=== PATIENT | male | born 1985 | race Caucasian/White ===

== ENCOUNTER 2020-01-29 07:53 | Outpatient (REF) | payer OTHER, SELFPAY ==
[2020-01-29 08:18] LABS: COVID-19 Test Negative (Negative)
== END 2020-01-29 07:54 | disposition home or self-care (01) ==
LOC: HO.LAB 07:53
PROVIDERS: Visit Provider Internal Medicine
DX: Z20.828 Contact with and (suspected) exposure to other viral communicable diseases (principal)
CPT/HCPCS: 87635

== ENCOUNTER 2025-02-08 15:01 | Outpatient (AMB) | payer BC, SELFPAY ==
--- NOTE | 2025-02-08 15:01 | MHC.PC.OV ---
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: No Accompanied by: Self / Same As Patient Allergies No Known Allergies (No Known Allergies*) Allergy (Verified 02/08/25 15:02) Shell fish Allergy (Unknown, Uncoded 06/24/19 00:00) Itchy lips shell fish Allergy (Unknown, Uncoded 04/10/19 00:00) itchy lips Medication List - Last Reconciled 02/08/25 by Anil Landin MD ibuprofen 800 mg PO Q8H Tobacco use date assessed: 02/08/25 Dental Screening Dental Screen Date: 02/08/25 Did you have a dental visit in the last 12 months?: No Did you have a dental problem in the last 6 months where you did not have access to dental care?: No Was dental information given to patient?: Patient has dentist HPI HPI Comments History of Present Illness Details History of Present Illness The patient is a 39 year old male presenting for a physical examination and to establish care with a new primary care provider. Left arm injury: The patient sustained a fall from a ladder in September, causing an injury to his left arm for which he did not seek emergency care. He continues to experience pain and popping, with an inability to fully extend the arm, although he notes the symptoms feel like they are improving. He has worn a brace intermittently and has not taken pain medication for the injury. Overweight: The patient struggles with his weight, which is a significant concern for him as he nears the age of 40. His BMI is 29.3, placing him in the overweight category. Suspected sleep apnea: The patient reports feeling tired a lot lately, which he attributes to diet and stress. He also reports a couple of episodes where he has woken up from sleep feeling as if he were choking or had stopped breathing. Allergy to shellfish: The patient has a known history of an allergy to shellfish, which is noted in his medical records. Surgical History: - No prior surgical history reported. Medications: - Denies taking any regular medications or supplements. - Has used scopolamine patches as needed for motion sickness on trips. - Uses dzet-ntr-tcbawbr ibuprofen as needed for pain. 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 - Substance Use: Denies smoking. - Substance Use: Reports social alcohol consumption. - Sexual Health: Declined screening for chlamydia, syphilis, and gonorrhea. - Weight Management: Patient struggles with his weight and considers it a primary concern. Family History: - Reports a family history of cancer. - Reports a family history of high blood pressure. Diagnostic Results: - Body Mass Index (BMI): 29.3 Past Medical History - Allergy to shellfish. - Intolerance to opioid pain medications including oxycodone, Percocet, and Vicodin, causing vomiting. - Left arm injury secondary to a fall from a ladder in September. - History of motion sickness managed with as-needed scopolamine patches. Health Maintenance - Patient is a 39-year-old male establishing primary care. - Colon cancer screening is not yet indicated. - Patient's BMI is 29.3, classifying him as overweight. - A referral was placed for a registered dietitian to discuss nutrition and weight management. - Comprehensive baseline labs were ordered. [facility] Medical History (Updated 02/08/25 @ 15:19 by Anil Landin MD) Overweight (BMI 25.0-29.9) Fatigue Snoring Family History (Updated 02/08/25 @ 15:09 by Kenneth Painting MA) Father Leukemia Mother Breast cancer Social History Housing: House Patient Tobacco Use Status: Never used Tobacco service: No Current occupational status: employed Cognitive needs: No Hearing needs: No Vision needs: No Questionnaire Thrive Questionnaire Date Thrive assessed: 02/05/25 I am a: Patient What is your living situation today?: I have a steady place to live Within the past 12 months, did the food you bought not last and you didn't have the money to get more?: Never true Within the past 12 months, did you worry whether your food would run out before you got money to buy more?: Never true Do you have trouble paying for medicines?: No Do you have trouble getting transportation to medical appointments?: No Do you have trouble paying your heating and electricity bill?: No Do you have trouble taking care of your child, family member or friend?: No Do you have trouble with day-to-day activities such as bathing, preparing meals, shopping, managing finances, etc.?: No Are you currently unemployed and looking for a job?: No Are you interested in more education?: No Please select the resources that you would like help with: None Currently or been in a relationship where the following occur: No concerns reported THRIVE Score: 0 AUDIT C Alcohol Use Questionnaire (AUDIT-C) 1. How often do you have a drink containing alcohol?: 2-3 times a week 2. How many drinks containing alcohol do you have on a typical day when you are drinking?: 3 or 4 3. How often do you have six or more drinks on one occasion?: Monthly Total Score: 6 MINGO-7 AMB Questionnaire MINGO-7 Feeling nervous, anxious, or on edge: 0 = Not at all Not being able to stop or control worryin = Not at all Worrying too much about different things: 0 = Not at all Trouble relaxin = Not at all Being so restless that it is hard to sit still: 0 = Not at all Becoming easily annoyed or irritable: 0 = Not at all Feeling afraid as if something awful might happen: 0 = Not at all Total MINGO-7 score (0-4 normal; 5-9 mild; 10-14 moderate; 15-21 severe): 0 Source: Developed by Drs. Prashant Alford, Janeen Cruz, Aries Tierney and colleagues, with an educational tatyana from [facility]. Review of Systems Narrative Review of Systems - Constitutional: Reports fatigue and struggles with weight. - Respiratory: Reports occasional episodes of waking up choking or gasping for air. - Musculoskeletal: Reports persistent pain, popping, and limited extension in the left arm since a fall in September. - Extremities: Denies swelling in the lower extremities. - Allergic/Immunologic: Reports an allergy to shellfish. 10-point ROS reviewed and negative except as noted in HPI Physical exam (Primary Care) Vital Signs: Last Vital Signs Temp 98 F 02/08/25 15:06 Pulse 79 02/08/25 15:06 Resp 16 02/08/25 15:06 BP 133/88 02/08/25 15:06 Pulse Ox 98 02/08/25 15:06 Oxygen Delivery Method Room Air 02/08/25 15:06 BMI result Body Mass Index 29.3 Tobacco/Smoking Status: Tobacco use Status Tobacco use date assessed 02/08/25 02/08/25 15:03 Patient Tobacco Use Status Never used Tobacco 02/08/25 15:03 Thrive Assessment: Date of Thrive Assessment Date Thrive assessed 02/05/25 02/08/25 15:03 Currently or been in a relationship where the following occur: No concerns reported Narrative Physical Exam General: Well-appearing, in no acute distress. Vital signs: Within normal limits. HEENT: Normocephalic, atraumatic. PERRLA, EOMI. Conjunctiva clear, sclera anicteric. Oropharynx clear, mucous membranes moist. TMs intact bilaterally. Neck: Supple, no lymphadenopathy, no thyromegaly, no JVD or carotid bruits. Cardiovascular: RRR, normal S1/S2, no murmurs, rubs, or gallops. Peripheral pulses 2+ and symmetric. No edema. Respiratory: Lungs clear to auscultation bilaterally, no wheezes, rales, or rhonchi. Normal effort. Abdomen: Soft, non-tender, non-distended. Normoactive bowel sounds. No hepatosplenomegaly, no masses. MSK: Limited range of motion in the left arm due to pain from a fall in September. No joint swelling or deformity noted. Normal gait. Skin: Warm, dry, intact. No rashes, lesions, or pallor. Neuro: Alert and oriented x3. Cranial nerves II-XII intact. Strength 5/5 throughout. Sensation intact. Reflexes 2+ symmetric. Normal coordination and gait. Psych: Appropriate mood and affect. Normal judgment and insight. Coding Level of Care Code New Pt Level 4 (85518) Diagnoses Snoring R06.83 Fatigue R53.83 Overweight (BMI 25.0-29.9) E66.3 Sleep apnea G47.30 Injury of left elbow S59.902A Assessment & Plan Assessment & Plan (1) Snoring: Code(s): R06.83 - Snoring Category: Medical (2) Fatigue: Code(s): R53.83 - Other fatigue Category: Medical (3) Overweight (BMI 25.0-29.9): Code(s): E66.3 - Overweight Category: Medical (4) Sleep apnea: Code(s): G47.30 - Sleep apnea, unspecified (5) Injury of left elbow: Code(s): S59.902A - Unspecified injury of left elbow, initial encounter Plan Consent The patient verbally consented to the plan of care, which includes comprehensive lab work, a home sleep study, and a referral to a registered dietitian. He also agreed to a conservative management approach for his arm injury, including ibuprofen and bracing, before proceeding with physical therapy. Patient was informed and verbally consented to the use of an ambient scribe for clinic note documentation during this visit. Plan 1. Encounter For General Adult Medical Examination - Comprehensive lab work ordered, including a complete blood count, comprehensive metabolic panel, lipid panel, hemoglobin A1c, HIV, hepatitis B and C, thyroid panel, urinalysis, vitamin B12, folate, and vitamin D. - Follow up in two weeks to review lab results. 2. Overweight - A referral has been placed for a registered dietitian to contact the patient to discuss diet and nutrition. 3. Left Arm Injury - A prescription for Ibuprofen 800 mg to be taken every 8 hours as needed for pain has been sent. - The patient will continue using his home brace. - If there is no improvement in 2-4 weeks, the plan is to proceed with physical therapy and imaging. - The patient opted for conservative management first due to concerns about work restrictions. 4. Suspected Sleep Apnea - An order has been placed for a home sleep study to rule out sleep apnea as a cause for his fatigue and to address its potential impact on his weight. Discussion Notes I discussed with the patient that this visit is to establish care and get a baseline of his health. We reviewed his BMI of 29.3, which is in the overweight category and a predictor for future cardiovascular health, and he agreed to a referral to a registered dietitian. Due to his symptoms of fatigue and waking up gasping for air, I explained the rationale for a home sleep study to rule out sleep apnea, which could also be contributing to his weight issues, and he was agreeable. For his chronic left arm injury, I proposed a stepwise approach, starting with conservative measures including Ibuprofen 800 mg and continued bracing. 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 We will follow up in two weeks to review the results of his comprehensive lab work. Patient Instructions - Please go to the lab to have your blood drawn for the tests we ordered. - A company will contact you to arrange a home sleep study. - A registered dietitian will reach out to you to discuss your diet. - For your arm pain, you can take one tablet of Ibuprofen 800 mg every 8 hours as needed. - Continue to use the brace for your arm that you have at home. - If your arm pain does not get better in 2 to 4 weeks, we will need to consider physical therapy and imaging tests. - Please follow up in two weeks to discuss your test results. 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 His primary concerns include his weight, fatigue, and a chronic left arm injury. The patient's BMI of 29.3 places him in the overweight category, approaching class 1 obesity, which is a risk factor for future cardiovascular events. His symptoms of fatigue coupled with reports of waking up choking are highly suggestive of obstructive sleep apnea, which may also contribute to his difficulty with weight management. Therefore, a home sleep study is medically necessary to investigate this possibility, and a referral to a registered dietitian is appropriate to address his weight concerns. His left arm injury, persistent since a fall in September, demonstrates limited range of motion and tenderness on exam. A stepwise approach to management is prudent. 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 Comprehensive baseline laboratory studies have been ordered to get an overall view of his health status. Follow-up in two weeks is planned to review all diagnostic findings and adjust the plan of care accordingly. Total time spent caring for the patient today was 30 minutes. This includes time spent before the visit reviewing the chart, time spent documenting, and time spent reviewing laboratory results, diagnostic imaging, medications, performing a medically necessary evaluation, counseling on diagnoses, care coordination.. Orders: Orders Hepatitis B Surface Antibody Today Z13.9 - Encounter for screening, unspecified Hepatitis C Antibody Today Z13.9 - Encounter for screening, unspecified Magnesium Today Z13.9 - Encounter for screening, unspecified TSH reflex Free T4 Today Z13.9 - Encounter for screening, unspecified UA CC w/rflx Micro + Cult Today Z13.9 - Encounter for screening, unspecified RT home sleep study Today R06.83 - Snoring, R53.83 - Other fatigue, Z13.9 - Encounter for screening, unspecified Comprehensive Met. Panel Today Z13.9 - Encounter for screening, unspecified Complete Blood Count Auto Diff Today Z13.9 - Encounter for screening, unspecified Hemoglobin A1c Today Z13.9 - Encounter for screening, unspecified Hepatitis B Surface Antigen Today Z13.9 - Encounter for screening, unspecified HIV Ab/Ag Today Z13.9 - Encounter for screening, unspecified Lipid Panel Today Z13.9 - Encounter for screening, unspecified Vitamin B12 and Folate Today Z13.9 - Encounter for screening, unspecified Vitamin D 1,25 dihydroxy Today Z13.9 - Encounter for screening, unspecified Referrals Nurse Navigator Referral E66.3 - Overweight, Z13.9 - Encounter for screening, unspecified Medications: New ibuprofen 800 mg PO Q8H 30 tabs 0RF
[2025-02-08 15:06] VITALS: BP 133/88; PULSE 79; RESP 16; TEMP 36.6; O2SAT 98; BMI 29.3
--- OUTSIDE RECORDS SUMMARY | 2025-02-08 18:26 | XMS_ITS | Clinical Summary ---
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 Role Phone Rod Lantigua MD Primary Care Provider Allergies No known active allergies Medications No known medications Active Problems No known active problems Immunizations Immunization Administration Dates Next Due DTP 11/12/1997, 1,02/18/1986,1985,1985 Hepatitis B 03/22/2000,08/16/1997,07/15/1997 Hib,HbOC 11/12/1997 INFLUENZA, SPLIT VIRUS, TRIVALENT PF 04/06/2016, 05/02/2015 INFLUENZA, SPLIT VIRUS, TRIV ALENT W/ PRESERVATIVE IM 02/10/2013 IPV 11/12/1997, 1,1985,1985 Influenza Quadrivalent MDCK Preservative Free IM 01/06/2022 Influenza Quadrivalent w/ Preservative IM 04/02/2019 MMR 07/15/1997,02/12/1997 Td (adult),2 Lf Tetanus Toxo id, PF, Adsorbed 03/22/2000 Tdap 10/15/2022,02/10/2013,10/26/2009 Unknown Vaccine Or Immune Globulin 09/12/1996 Varicella 04/24/2007 Social History Tobacco Use Types Packs/Day Years Used Date Smoking Tobacco: Never Smokeless Tobacco: Never Tobacco Cessation:Counseling Given: Not Answered Alcohol Use Standard Drinks/Week Comments Yes 0 (1 standard drink = 0.6 oz pur e alcohol) Education Answer Date Recorded Are you interested in more education? Not on luis e 10/15/2022 Are you concerned about learning? Not on file 10/15/2022 No 10/15/2022 No 10/15/2022 Digital Access Answer Date Recorded No 10/15/2022 No 10/15/2022 Reliable internet access at home? Not on file 10/15/2022 Device with a working camera? Not on file Sex and Gender Information Value Date Recorded Sex Assigned at Not on file Legal Sex Male 4:58 PM EDT Gender Identity Not on file Sexual Orientation Not on file Last Filed Vital Signs Vital Sign Reading Time Taken Comments Blood Pressure 164/97 09/09/2023 2:23 PM EDT Pulse 69 09/09/2023 2:23 PM EDT Temperature 37.1 C (98.8 F) 09/09/2023 2:23 PM EDT Respiratory Rate 16 09/09/2023 2:23 PM EDT Oxygen Saturation 100% 09/09/2023 2:23 PM EDT Inhaled Oxygen Concentration - - Weight - - Height - - Body Mass Index - - Plan of Treatment Health Maintenance Due Date Last Done Comments LIPID PANEL 1985 DEPRESSION SCREENING 1997 HEPATITIS C SCREENING 08/27/2003 HIV ONE-TIME SCREENING (18-65 YEARS) 08/27/2003 INFLUENZA VACCINE (#1) 2024 , 01/06/2022, 04/02/2019, Additional history exists COVID-19 VACCINE (2024- season) 2024 09/02/2020, 08/10/2020 Adult Td,Tdap Booster 10/15/2032 10/15/2022 , 02/10/2013, 10/26/2009, Additional history exists HIB VACCINES Aged Out 11/12/1997 No longer eligi ble based on patient's age to complete this topic SMOKING STATUS SCREENING (Once After 26 Yrs) Completed 09/09/2023 HEPATITIS A VACCINES Aged Out No long er eligible based on patient's age to complete this topic MENINGOCOCCAL VACCINES (ACWY) Aged Out No longer eligible based on patient's age to complete this topic MENINGOCOCCAL VACCINES (B) Aged Out N o longer eligible based on patient's age to complete this topic PNEUMOCOCCAL VACCINES (0-49 years) Aged Out No longer eligible based on patient's age to complete this topic Medical Devices Not on file Insurance [facility] [place] [id number] FORMERLY [facility] [place] [id number] FOR[facility]LY [facility] Care Teams Drywall Hanger Helper Relationship Specialty Start Date End Date Rod Lantigua MD PCP - General Family Medicine 10/15/22 Additional Source Comments The information contained in this document represents components of the legal health record. It is not the complete legal health record.[facility]
== END 2025-02-08 15:29 | disposition home or self-care (01) ==
LOC: HO.HMCFMS 15:02
PROVIDERS: PCP Student in an Organized Health Care Education/Training Program; Visit Provider Student in an Organized Health Care Education/Training Program
DX: R06.83 Snoring (principal); R53.83 Other fatigue; E66.3 Overweight; G47.30 Sleep apnea, unspecified; S59.902A Unspecified injury of left elbow, initial encounter

== ENCOUNTER 2025-02-08 15:01 | Outpatient (REF) | payer BC, SELFPAY ==
[2025-02-08 18:00] LABS: MANUAL DIFF FLAG NO
[2025-02-08 18:06] LABS: Hematocrit 43.4 % (42.0-52.0); Hemoglobin 14.7 g/dl (14.0-18.0); Imm Gran Abs Auto 0.02 X10*3/uL (0.00-0.03); Imm Gran Pct Auto 0.3 % (0.0-0.4); Lymphocytes Absolute Auto 1.9 X10*3/uL (1.2-4.9); Mean Corpuscular HGB Conc 33.9 g/dl (31.0-36.0); Mean Corpuscular Hemoglobin 29.3 pg (27.0-33.0); Mean Corpuscular Volume 86.5 fL (80.0-98.0); NRBC Abs Auto 0.000 X10*3/uL (0.0-0.012); NRBC Pct Auto 0.0 /100WBC (0.0-0.2); Platelet Count 231 X10*3/uL (160-400); Red Blood Count 5.02 X10*6/uL (4.60-5.80); White Blood Count 7.3 X10*3/uL (4.8-10.8)
[2025-02-08 18:38] LABS: Alanine Aminotransferase 21 U/L (0-40); Albumin Level 4.6 g/dL (3.5-5.0); Alkaline Phosphatase 75 U/L (39-117); Anion Gap 11 (12-20); Aspartate Amino Transferase 31 U/L (5-37); Blood Urea Nitrogen 15 mg/dL (9-16); Calcium 8.9 mg/dL (8.4-10.2); Carbon Dioxide 28 mmol/L (22-29); Chloride 105 mmol/L (96-108); Cholesterol 202 mg/dL (<200); Estimated Glomerular Filt Rate > 60; HDL Cholesterol 44 mg/dL (>40); Magnesium 1.9 mg/dL (1.6-2.6); Potassium 4.3 mmol/L (3.3-5.1); Sodium 140 mmol/L (135-145); Total Protein 7.4 g/dL (6.5-8.0); Triglycerides 84 mg/dL (<150)
[2025-02-08 18:39] LABS: Appearance Urine Clear; Glucose Urine UA Negative (Negative); PH 5.5 (5.0-9.0); Specific Gravity - Urine 1.025 (1.005-1.025)
[2025-02-08 18:57] LABS: Folate 10.1 ng/mL (> or = 4.0); Vitamin B12 326 pg/mL (200-900)
[2025-02-09 03:43] LABS: HBS Num1 217.78 mIU/mL (0-7.99); HBsAGNum1 0.36 S/CO (0.00-0.99); HIV Num 1 0.06 S/CO (0.00-0.99); Hepatitis B Surface Antigen Negative (Negative); ~HepC Num1 0.11 S/CO (0.00-0.79); ~Hepatitis B Surface Antibody REACTIVE (Nonreactive); ~Hepatitis C Antibody Nonreactive (Nonreactive)
[2025-02-09 05:26] LABS: Total Hemoglobin (HGBA1C) 3779.8455 umol/L
[2025-02-12 22:38] LABS: VITAMIN D (1,25 OH) D3 39 pg/mL; Vit D (1,25-Dihydroxy) Total 39 pg/mL (18-72); Vitamin D (1,25 OH) D2 <8 pg/mL
== END 2025-02-08 15:02 | disposition home or self-care (01) ==
LOC: HO.HKASLDS 15:01
PROVIDERS: PCP Student in an Organized Health Care Education/Training Program; Visit Provider Student in an Organized Health Care Education/Training Program
DX: Z00.00 Encounter for general adult medical examination without abnormal findings (principal); E66.3 Overweight; R06.83 Snoring; R53.83 Other fatigue; G47.30 Sleep apnea, unspecified; S59.902A Unspecified injury of left elbow, initial encounter; E53.8 Deficiency of other specified B group vitamins; E78.5 Hyperlipidemia, unspecified; W11.XXXA Fall on and from ladder, initial encounter; Y93.9 Activity, unspecified; Y92.9 Unspecified place or not applicable; Y99.9 Unspecified external cause status; Z91.013 Allergy to seafood; Z68.29 Body mass index [BMI] 29.0-29.9, adult
CPT/HCPCS: 36415; 80053; 80061; 81003; 82607; 82652; 82746; 83036; 83735; 84443; 85025; 86706; 86803; 87340; 87389

== ENCOUNTER 2025-02-24 09:18 | Outpatient (AMB) | payer BC, SELFPAY ==
[2025-02-24 09:23] VITALS: BP 155/95; PULSE 71; TEMP 36.8; O2SAT 97; BMI 29.4
--- NOTE | 2025-02-24 09:23 | A.OFFPC_ITS ---
Vital Signs 02/24/25 09:23 Height 5 ft 11.65 in Weight 215 lb BMI 29.4 BP 155/95 H Blood Pressure Location Rt brachial Position Sitting Pulse 71 Pulse Source Pulse Oximeter Temp 98.2 F Temp Source Oral Pulse Oximetry (%) 97 Oxygen Delivery Method Room Air Intake Visit Reasons: 2 wk f/u - lab review Senior Administrator Support Required: No Accompanied by: Self / Same As Patient Allergies No Known Allergies (No Known Allergies*) Allergy (Verified 02/24/25 09:24) shell fish Allergy (Unknown, Uncoded 04/10/19 00:00) itchy lips Medication List - Last Reconciled 02/24/25 by Anil Landin MD ibuprofen 800 mg PO Q8H Tobacco use date assessed: 02/24/25 Dental Screening Dental Screen Date: 02/24/25 Did you have a dental visit in the last 12 months?: Yes Did you have a dental problem in the last 6 months where you did not have access to dental care?: No Was dental information given to patient?: Patient has dentist HPI HPI Comments History of Present Illness Details History of Present Illness The patient is a 39-year-old male presenting for a review of laboratory results. Hyperlipidemia: The patient's non-fasting lipid panel showed a total cholesterol of 202 mg/dL and an LDL cholesterol of 142 mg/dL, which is above the recommended level of 100 mg/dL. His triglycerides were below 150 mg/dL and his HDL cholesterol was 44 mg/dL. He reports eating cheese with eggs for breakfast. Elevated blood pressure reading: The patient reports a history of being told he is pre-hypertensive, with a previous reading of 155/95 and a more recent one of 133/88. He has a family history of hypertension, with his brother having the condition. Social History: - Diet: The patient reports consuming ch eese and milk products, often eating cheese with eggs for breakfast. Family History: - Hypertension: Patient's brother has hy pertension. Diagnostic Results: - Complete Blood Count (CBC): Normal [facility] blood cells, red blood cells, hemoglobin, hematocrit, and platelets. - Slightly elevated eosinophil count, at tributed to allergies. - Comprehensive Metabolic Panel (CMP): S odium, potassium, and chloride are normal. - Kidney and liver function are normal. - Calcium and magnesium are normal. - Glycemic markers: Fasting glucose and Hemoglobin A1c are normal, ruling out prediabetes and diabetes. - Lipid Panel (non-fasting): Total ramon sterol 202 mg/dL, triglycerides < 150 mg/dL, LDL cholesterol 142 mg/dL, and HDL cholesterol 44 mg/dL. - Vitamins: Vitamin B12 is 326 pg/mL (no rmal range 200-900). - Vitamin D and folate levels are good. - Thyroid function tests: Normal. - Urinalysis: Normal with no signs of in fection. - Infectious Disease Screening: Negative for Hepatitis B, Hepatitis C, and HIV. Past Medical History - Elevated blood pressure readings, desc ribed as prehypertensive. - Allergies, as suggested by elevated eo sinophil count. Health Maintenance - Reviewed comprehensive lab results, wh ich were reassuring and negative for anemia, infection, kidney disease, liver disease, diabetes, thyroid disorders, and major infectious diseases (Hepatitis B/C, HIV). - Vitamin B12 level is 326, which is wit hin the normal range; supplementation with a multivitamin or B12 was discussed as optional. [facility] Medical History (Updated 02/24/25 @ 19:28 by Anil Landin MD) Low vitamin B12 level Hyperlipidemia Overweight (BMI 25.0-29.9) Fatigue Snoring Family History Father Leukemia Mother Breast cancer Social History Housing: House Patient Tobacco Use Status: Never used Tobacco service: No Current occupational status: employed Cognitive needs: No Hearing needs: No Vision needs: No Questionnaire PHQ-9 Over the last 2 weeks, how often have you been bothered by any of the following problems? 1. Little interest or pleasure in doing things: not at all 2. Feeling down, depressed, or hopeless: not at all 3. Trouble falling or staying asleep, or sleeping too much: not at all 4. Feeling tired or having little energy: not at all 5. Poor appetite or overeating: several days 6. Feeling bad about yourself - or that you are a failure or have let yourself or your family down: not at all 7. Trouble concentrating on things, such as reading the newspaper or watching television: not at all 8. Moving or speaking so slowly that other people could have noticed. Or the opposite - being so fidgety or restless that you have been moving around a lot more than usual: not at all 9. Thoughts that you would be better off or of hurting yourself in some w ay: not at all Total score: 1 Depression Screening Interpretation: Negative Depression Screening Done: Yes Source: Developed by Drs. Prashant Alford, Janeen Cruz, Aries Tierney and colleagues, with an educational tatyana from [employer]. Thrive Questionnaire Date Thrive assessed: 02/24/25 I am a: Patient What is your living situation today?: I have a steady place to live Within the past 12 months, did the food you bought not last and you didn't have the money to get more?: Never true Within the past 12 months, did you worry whether your food would run out before you got money to buy more?: Never true Do you have trouble paying for medicines?: No Do you have trouble getting transportation to medical appointments?: No Do you have trouble paying your heating and electricity bill?: No Do you have trouble taking care of your child, family member or friend?: No Do you have trouble with day-to-day activities such as bathing, preparing meals, shopping, managing finances, etc.?: No Are you currently unemployed and looking for a job?: No Are you interested in more education?: No Please select the resources that you would like help with: None Currently or been in a relationship where the following occur: No concerns reported THRIVE Score: 0 AUDIT C Alcohol Use Questionnaire (AUDIT-C) 1. How often do you have a drink containing alcohol?: 2-3 times a week 2. How many drinks containing alcohol do you have on a typical day when you are drinking?: 3 or 4 3. How often do you have six or more drinks on one occasion?: Monthly Total Score: 6 MINGO-7 AMB Questionnaire MINGO-7 Date MINGO - 7 assessed: 02/24/25 Feeling nervous, anxious, or on edge: 0 = Not at all Not being able to stop or control worryin = Not at all Worrying too much about different things: 0 = Not at all Trouble relaxin = Not at all Being so restless that it is hard to sit still: 0 = Not at all Becoming easily annoyed or irritable: 0 = Not at all Feeling afraid as if something awful might happen: 0 = Not at all Total MINGO-7 score (0-4 normal; 5-9 mild; 10-14 moderate; 15-21 severe): 0 Source: Developed by Drs. Prashant Alford, Janeen Cruz, Aries Tierney and colleagues, with an educational tatyana from [employer]. Review of Systems Narrative Review of Systems - Constitutional: Denies concerns other than reviewing lab results. - Cardiovascular: Reports history of elevated blood pressure readings. 10-point ROS reviewed and negative except as noted in HPI Physical exam (Primary Care) Vital Signs: Last Vital Signs Temp 98.2 F 02/24/25 09:23 Pulse 71 02/24/25 09:23 BP 155/95 H 02/24/25 09:23 Pulse Ox 97 02/24/25 09:23 Oxygen Delivery Method Room Air 02/24/25 09:23 BMI result Body Mass Index 29.4 Tobacco/Smoking Status: Tobacco use Status Tobacco use date assessed 02/24/25 02/24/25 09:25 Patient Tobacco Use Status Never used Tobacco 02/24/25 09:25 PHQ-9: PHQ-9 Score PHQ-9: Total score 1 02/24/25 09:36 Depression Screening Interpretation: Negative Thrive Assessment: Date of Thrive Assessment Date Thrive assessed 02/24/25 02/24/25 09:25 Currently or been in a relationship where the following occur: No concerns reported Narrative Physical Exam General: Well-appearing, in no acute distress. Vital signs: Blood pressure noted as pre-hypertensive, with previous readings of 155/95 and 133/88. HEENT: Normocephalic, atraumatic. PERRLA, EOMI. Conjunctiva clear, sclera anicteric. Oropharynx clear, mucous membranes moist. TMs intact bilaterally. Neck: Supple, no lymphadenopathy, no thyromegaly, no JVD or carotid bruits. Cardiovascular: RRR, normal S1/S2, no murmurs, rubs, or gallops. Peripheral pulses 2+ and symmetric. No edema. Respiratory: Lungs clear to auscultation bilaterally, no wheezes, rales, or r honchi. Normal effort. Abdomen: Soft, non-tender, non-distended. Normoactive bowel sounds. No hepatosplenomegaly, no masses. MSK: Full range of motion, no joint swelling or deformity. Normal gait. Skin: Warm, dry, intact. No rashes, lesions, or pallor. Neuro: Alert and oriented x3. Cranial nerves II-XII intact. Strength 5/5 throughout. Sensation intact. Reflexes 2+ symmetric. Normal coordination and gait. Psych: Appropriate mood and affect. Normal judgment and insight. Office Procedures Flu Questionnaire Does the patient have a severe egg allergy?: No Does the patient have a fever or illness today?: No Has the patient ever had Guillain-[place] Syndrome?: No Has the patient ever had any past reaction to a flu shot?: No Immunizations Fluarix [id number] (PF) 45 mcg (15 mcg x 3)/0.5 mL IM syringe Performing Provider: Anil Landin MD Performing Location: [facility] [place] [facility] Administered by: Delaney Urrutia CMA on 02/24/25 09:34 Dose Route Admin Location Dispensed Lot Number Expiration Date NDC Intranet Developer 0.5 mL IM Right Deltoid 0.5 mL [id number] 10/12/25 [id number] [employer] VIS Given Date VIS Provided VIS Publication Date 02/24/25 Single Vaccine 24 Eligibility Eligibility Date Funding Source Not [facility] Eligible 02/24/25 Private Coding Level of Care Code Est Pt Level 4 (40255) Diagnoses Hyperlipidemia E78.5 Overweight (BMI 25.0-29.9) E66.3 Elevated blood pressure reading R03.0 Low vitamin B12 level E53.8 Assessment & Plan Assessment & Plan (1) Hyperlipidemia: Code(s): E78.5 - Hyperlipidemia, unspecified Category: Medical (2) Overweight (BMI 25.0-29.9): Code(s): E66.3 - Overweight Category: Medical (3) Elevated blood pressure reading: Code(s): R03.0 - Elevated blood-pressure reading, without diagnosis of hypertension (4) Low vitamin B12 level: Code(s): E53.8 - Deficiency of other specified B group vitamins Category: Medical Plan Consent Patient was informed and verbally consented to the use of an ambient scribe for clinic note documentation during this visit. Plan 1. Hyperlipidemia - The patient's non-fasting LDL cholesterol was elevated at 142 mg/dL. - Advised to reduce intake of cheese to help lower cholesterol. - No pharmacotherapy is indicated at this time. 2. Elevated Blood Pressure Reading - The patient has a history of elevated BP readings (last 133/88) and a family history of hypertension. - The readings are not considered worrisome at this time, partly due to suspicion that they were obtained with improper technique. - Labs show good kidney function, which is reassuring. - No immediate intervention or monitoring is planned, but a home BP monitoring protocol was discussed as a future option if concerns persist. Discussion Notes I reviewed the patient's lab results with him and informed him that he has a good bill of health overall. I explained that his CBC, electrolytes, kidney function, liver function, and thyroid are all normal. I also confirmed that his tests for diabetes, hepatitis B, hepatitis C, and HIV were all negative. I pointed out that his non-fasting LDL or bad cholesterol was elevated at 142, and we discussed that this can be improved by reducing his intake of foods like cheese. I addressed his concerns about his blood pressure, noting his last reading of 133/88 is not worrisome and that the measurement technique used may have resulted in a falsely elevated reading. I explained the proper procedure for obtaining an accurate blood pressure reading and reassured him that I am not worried about it at this time, but that we could consider home monitoring in the future if it became a concern. Patient Instructions - Your lab results are mostly normal and show you are in good health. - Your bad cholesterol (LDL) is slightly high. - To help lower your cholesterol, please try to cut down on the amount of cheese you eat. - We are not worried about your blood pressure readings at this time. - Your vitamin B12 level is normal, but you can take an [id number] B12 supplement or a multivitamin if you choose to. - You do not have diabetes, and your kidney, liver, and thyroid are all working well. Medical Decision Making The patient is a 39-year-old male who presented for a review of recent lab work. The lab results were largely reassuring, with normal CBC, CMP, HbA1c, and negative infectious disease screens, ruling out anemia, infection, electrolyte abnormalities, diabetes, and renal or hepatic dysfunction. The primary findings of note were an elevated LDL of 142 on a non-fasting lipid panel and patient-reported elevated blood pressure readings. Given the non- fasting status and moderate LDL elevation, the initial management for hyperlipidemia is dietary counseling to reduce saturated fat intake, with no pharmacotherapy indicated at this time. Regarding the blood pressure, his latest reading of 133/88 and family history are noted; however, there is a strong suspicion that readings were artifactually elevated due to improper measurement technique. Combined with the absence of end-organ damage as evidenced by normal kidney function, a conservative approach of watchful waiting is appropriate. The plan is to continue observation without medication, with home blood pressure monitoring to be initiated if concerns persist. Total time spent caring for the patient today was 20 minutes. This includes time spent before the visit reviewing the chart, time spent documenting, and time spent reviewing laboratory results, diagnostic imaging, medications, performing a medically necessary evaluation, counseling on diagnoses, care coordination. Orders: Orders Influenza [id number] Immunization Today Z23 - Encounter for immunization Medications: New mecobalamin (vitamin B12) place tablet under tongue and allow to dissolve for at least30 secs before swallowing 1,000 mcg sublingual BEDTIME 90 tabs 0RF
--- OUTSIDE RECORDS SUMMARY | 2025-02-24 10:14 | XMS_ITS | Clinical Summary ---
Author Organization [facility] Address [address] [place] [id number] Phone Care Team Providers Care Culinary Internship Name Role Phone Rod Lantigua MD Primary [...] topic Medical Devices Not on file Insurance [facility] [place] [id number] [facility] [place] [id number] [facility] Care Teams Culinary Internship Relationship Specialty Start Date End Date Rod Lantigua MD PCP - General Family Medicine 10/15/22 Additional Source Comments The information contained in this document represents components of the legal health record. It is not the complete legal health record.[facility]
== END 2025-02-24 09:58 | disposition home or self-care (01) ==
LOC: HO.HMCFMS 09:19
PROVIDERS: PCP Student in an Organized Health Care Education/Training Program; Visit Provider Student in an Organized Health Care Education/Training Program
DX: E78.5 Hyperlipidemia, unspecified (principal); E66.3 Overweight; R03.0 Elevated blood-pressure reading, without diagnosis of hypertension; E53.8 Deficiency of other specified B group vitamins; Z23 Encounter for immunization

== ENCOUNTER → 2025-02-24 09:18 | Outpatient (BNVA) | payer BC, SELFPAY | PROVIDERS: PCP Family Medicine; Visit Provider Student in an Organized Health Care Education/Training Program | DX: Z23 Encounter for immunization (principal) | CPT/HCPCS: 90471; 90656 ==